=== PATIENT | female | born 1975 | race African-American/Black ===

== ENCOUNTER 2021-02-24 12:37 | Emergency (ER) | payer OTHER ==
[~2021-02-24] VITALS: Ht 165.1 cm; Wt 73.0 kg
[2021-02-24 14:22] LABS: HEMATOCRIT. 37.3 % (36.0-48.0); HEMOGLOBIN. 11.8 g/dL (12.0-16.0); MEAN CORPUSCULAR HEMOGLOBIN 25.6 pg (28.0-32.0); MEAN CORPUSCULAR VOLUME 80.5 fL (81.0-99.0); MEAN PLATELET VOLUME 8.9 fl (7.4-10.4); PLATELET 272 x1000/uL (130-400); RED BLOOD CELL COUNT 4.63 mill/uL (4.2-5.4); RED CELL DISTRIBUTION WIDTH 15.4 % (11.6-14.6)
[2021-02-24 14:27] LABS: CHLORIDE 110 mEq/L (98-107)
[2021-02-24 14:31] LABS: HCG SCREEN NEGATIVE
[2021-02-24] MEDS ORDERED: MORPHINE SULFATE 4 MG/ML CPJ (NOT FOR IM USE) IV ONE (14:45)
[2021-02-24] MEDS ORDERED: IOHEXOL-350 100 ML BOTTLE ONE (15:20)
[2021-02-24 16:36] LABS: PLATELET ESTIMATE NORMAL
[2021-02-24] MEDS ORDERED: ASPIRIN 81MG TABLET PO ONE (17:00)
[2021-02-24] MEDS ORDERED: PANTOPRAZOLE SODIUM 40 MG/VIAL IV NR (18:30)
[2021-02-24 21:06] VITALS: BP 120/89
== END 2021-02-24 21:36 | disposition short-term general hospital (02) ==
LOC: ER 12:37 → CANBEDREQ 18:09 → ER 21:36
DX: R07.89 Other chest pain (principal); I26.99 Other pulmonary embolism without acute cor pulmonale; R00.0 Tachycardia, unspecified; D64.9 Anemia, unspecified; Z85.9 Personal history of malignant neoplasm, unspecified; Z98.890 Other specified postprocedural states
CPT/HCPCS: 36415; 71045; 71275; 80053; 81025; 83880; 84484; 84703; 85025; 85379; 93005; 96374; 96375; 99285; C9113; J2270; Q9967; Z7610